=== PATIENT | male | born 2000 | race Caucasian/White ===

== ENCOUNTER → 2024-07-08 | Outpatient (CLI) | payer BC | LOC: M ONCR 10:12 | PROVIDERS: ATTEND General Practice | DX: C62.12 Malignant neoplasm of descended left testis (principal); C77.5 Secondary and unspecified malignant neoplasm of intrapelvic lymph nodes; Z80.3 Family history of malignant neoplasm of breast; Z91.010 Allergy to peanuts; Z91.012 Allergy to eggs; Z91.09 Other allergy status, other than to drugs and biological substances ==

== ENCOUNTER 2024-07-18 10:06 | Outpatient (RCR) | payer BC ==
[2024-08-10] MEDS ORDERED: ONDA-282 PO (10:01)
== END 2024-08-04 ==
LOC: M ONCR 10:06
PROVIDERS: ATTEND General Practice
DX: Z51.0 Encounter for antineoplastic radiation therapy (principal); C62.12 Malignant neoplasm of descended left testis

== ENCOUNTER 2024-08-29 15:49 | Outpatient (RCR) | payer BC ==
[~2024-08-29 15:49] MED LIST: LORA1TAB23 PO; ONDA-282 PO; ONDA-84 PO
== END 2024-09-03 ==
LOC: M ONCR 15:49
PROVIDERS: ATTEND General Practice
DX: Z51.0 Encounter for antineoplastic radiation therapy (principal); C62.12 Malignant neoplasm of descended left testis

== ENCOUNTER → 2024-12-09 | Outpatient (CLI) | payer BC | LOC: M ONCR 15:53 | PROVIDERS: ATTEND General Practice | DX: C62.12 Malignant neoplasm of descended left testis (principal); Z90.79 Acquired absence of other genital organ(s); Z92.3 Personal history of irradiation; Z91.010 Allergy to peanuts; Z91.012 Allergy to eggs; J30.81 Allergic rhinitis due to animal (cat) (dog) hair and dander; Z79.899 Other long term (current) drug therapy ==

== ENCOUNTER → 2025-06-22 | Outpatient (CLI) | payer BC | LOC: M ONCR 07:59 | PROVIDERS: ATTEND General Practice | DX: C62.12 Malignant neoplasm of descended left testis (principal); Z90.79 Acquired absence of other genital organ(s); Z92.3 Personal history of irradiation; Z91.010 Allergy to peanuts; Z91.012 Allergy to eggs; J30.81 Allergic rhinitis due to animal (cat) (dog) hair and dander; Z79.899 Other long term (current) drug therapy ==